=== PATIENT | female | born 1965 | race African-American/Black ===

== ENCOUNTER 2022-01-03 11:00 | Inpatient (IN) | payer BC, OTHER ==
[2022-01-03] MEDS ORDERED: cloNIDine HCL 0.1 MG TABLET PO PRN (19:01)
[2022-01-03] MEDS ORDERED: IBUPROFEN 600 MG TABLET (FP) PO PRN (19:01)
[2022-01-03] MEDS ORDERED: BENZOCAINE/MENTHOL (CHLORASEPTIC ) LOZENGE MM PRN (19:01)
[2022-01-03] MEDS ORDERED: ACETAMINOPHEN 325 MG TABLET (FP) PO PRN ×2 (19:01)
[2022-01-03] MEDS ORDERED: LOPERAMIDE HCL 2 MG CAPSULE PO PRN (19:01)
[2022-01-03] MEDS ORDERED: ONDANSETRON *ODT* 4 MG TABLET SL PRN (19:01)
[2022-01-03] MEDS ORDERED: BISMUTH SUBSALICYLATE 524 MG/30 ML PO PRN (19:01)
[2022-01-03] MEDS ORDERED: DICYCLOMINE HCL 10 MG CAPSULE PO PRN (19:01)
[2022-01-03] MEDS ORDERED: IBUPROFEN 400 MG TABLET (FP) PO PRN (19:01)
[2022-01-03] MEDS ORDERED: methaDONE HCL 10 MG TABLET (FOR DETOX USE ONLY) PO ONE (19:01)
[2022-01-03] MEDS ORDERED: MAG HYDROX/AL HYDROX/SIMETH 30 ML UNIT-DOSE CUP PO PRN (19:01)
[2022-01-03] MEDS ORDERED: MAGNESIUM CITRATE 300 ML BOTTLE PO PRN (19:01)
[2022-01-03] MEDS ORDERED: MAGNESIUM HYDROX 2400MG/30ML ORAL SUSPENSION 30 ML CUP PO PRN (19:01)
[2022-01-03] MEDS ORDERED: BACLOFEN 10 MG TABLET (FP) PO PRN (20:41)
[2022-01-03] MEDS: hydrOXYzine PAMOATE 25 MG CAPSULE (FP) PO SCH (21:48)
[2022-01-03] MEDS: THIAMINE HCL 100 MG TABLET (FP) PO SCH (21:48)
[2022-01-03] MEDS: PRENATAL VITAMINS W/ FOLIC ACID TABLET (FP) PO SCH (21:53)
[2022-01-03] MEDS ORDERED: MELATONIN 5 MG TABLETS PO SCH (22:00)
[2022-01-03 23:28] VITALS: BMI 18.8
[2022-01-04] MEDS: hydrOXYzine PAMOATE 25 MG CAPSULE (FP) PO SCH ×5 (06:00→22:24)
[2022-01-04] MEDS ORDERED: PATIENT'S OWN MEDICATION (NON-FORMULARY) (Losartan Potassium [Losartan Potassium] 100 MG T PO SCH (10:00)
[2022-01-04] MEDS ORDERED: amLODIPine BESYLATE 10 MG TABLET (FP) PO SCH (10:00)
[2022-01-04] MEDS: PRENATAL VITAMINS W/ FOLIC ACID TABLET (FP) PO SCH (10:13)
[2022-01-04] MEDS: LOSARTAN POTASSIUM 50 MG TABLET PO SCH (10:14)
[2022-01-04] MEDS: amLODIPine BESYLATE 10 MG TABLET (FP) PO SCH (10:14)
[2022-01-04] MEDS: LORATADINE 10 MG TABLET PO SCH (10:14)
[2022-01-04] MEDS: METHOCARBAMOL 500 MG TABLET PO PRN ×2 (10:15→18:39)
[2022-01-04 10:27] LABS: HEMATOCRIT 33.6 % (32.4-45.2); HEMOGLOBIN 11.5 GM/dL (10.7-15.3); MCH 30.8 pg (25.7-33.7); MCHC 34.1 g/dl (32.0-36.0); MEAN CELL VOLUME 90.3 fl (80-96); MEAN PLT VOLUME 9.1 fl (7.5-11.1); PLATELET COUNT 248 10^3/uL (134-434); RBC 3.72 M/mm3 (3.60-5.2); RDW 13.7 % (11.6-15.6); WHITE BLOOD COUNT 4.7 K/mm3 (4.0-10.0)
[2022-01-04 10:54] LABS: CALCIUM 8.8 mg/dL (8.5-10.1)
[2022-01-04 10:56] LABS: ALBUMIN 3.4 g/dl (3.4-5.0); BLOOD UREA NITROGEN 22.3 mg/dL (7-18)
[2022-01-04 10:58] LABS: CREATININE 1.2 mg/dL (0.55-1.3)
[2022-01-04 10:59] LABS: BILIRUBIN,TOTAL 0.3 mg/dL (0.2-1)
[2022-01-04 11:00] LABS: TOT PROT 6.1 g/dl (6.4-8.2)
[2022-01-04] MEDS: HYDROCORTISONE 2.5% LOTION - 1 BOTTLE TP SCH ×2 (11:12→22:25)
[2022-01-04] MEDS: CLOTRIMAZOLE 1% CREAM TP SCH (11:13)
[2022-01-04] MEDS: TOPIRAMATE 25 MG TABLET PO SCH (11:27)
[2022-01-04] MEDS ORDERED: QUEtiapine FUMARATE 100 MG TABLET (FP) PO SCH (22:00)
[2022-01-04] MEDS: QUEtiapine FUMARATE 200 MG TABLET PO SCH (22:24)
[2022-01-04] MEDS: THIAMINE HCL 100 MG TABLET (FP) PO SCH (22:24)
[2022-01-05] MEDS: hydrOXYzine PAMOATE 25 MG CAPSULE (FP) PO SCH ×5 (05:48→22:12)
[2022-01-05] MEDS ORDERED: methaDONE HCL 10 MG TABLET (FOR DETOX USE ONLY) PO ONE (10:00)
[2022-01-05] MEDS: LOSARTAN POTASSIUM 50 MG TABLET PO SCH (10:23)
[2022-01-05] MEDS: amLODIPine BESYLATE 10 MG TABLET (FP) PO SCH (10:24)
[2022-01-05] MEDS: LORATADINE 10 MG TABLET PO SCH (10:24)
[2022-01-05] MEDS: PRENATAL VITAMINS W/ FOLIC ACID TABLET (FP) PO SCH (10:25)
[2022-01-05] MEDS: HYDROCORTISONE 2.5% LOTION - 1 BOTTLE TP SCH (10:28)
[2022-01-05] MEDS: TOPIRAMATE 25 MG TABLET PO SCH ×2 (10:29→10:40)
[2022-01-05] MEDS: CLOTRIMAZOLE 1% CREAM TP SCH (10:31)
[2022-01-05] MEDS ORDERED: COLLOIDAL OATMEAL 1 BAR EACH TP PRN (11:06)
[2022-01-05] MEDS ORDERED: AMMONIUM LACTATE 12% LOTION 225 GM BOTTLE TP PRN (11:07)
[2022-01-05] MEDS: QUEtiapine FUMARATE 200 MG TABLET PO SCH (22:11)
[2022-01-05] MEDS: THIAMINE HCL 100 MG TABLET (FP) PO SCH (22:11)
[2022-01-05] MEDS: METHOCARBAMOL 500 MG TABLET PO PRN (22:13)
[2022-01-06] MEDS: HYDROCORTISONE 2.5% LOTION - 1 BOTTLE TP SCH ×3 (00:45→22:15)
[2022-01-06] MEDS: hydrOXYzine PAMOATE 25 MG CAPSULE (FP) PO SCH ×5 (06:08→22:15)
[2022-01-06] MEDS: LORATADINE 10 MG TABLET PO SCH (10:55)
[2022-01-06] MEDS: PRENATAL VITAMINS W/ FOLIC ACID TABLET (FP) PO SCH (10:55)
[2022-01-06] MEDS: amLODIPine BESYLATE 10 MG TABLET (FP) PO SCH (10:57)
[2022-01-06] MEDS: CLOTRIMAZOLE 1% CREAM TP SCH (10:57)
[2022-01-06] MEDS: TOPIRAMATE 25 MG TABLET PO SCH (10:57)
[2022-01-06] MEDS: LOSARTAN POTASSIUM 50 MG TABLET PO SCH (10:58)
[2022-01-06] MEDS: QUEtiapine FUMARATE 200 MG TABLET PO SCH (22:15)
[2022-01-06] MEDS: THIAMINE HCL 100 MG TABLET (FP) PO SCH (22:15)
[2022-01-07] MEDS: hydrOXYzine PAMOATE 25 MG CAPSULE (FP) PO SCH ×5 (06:11→22:29)
[2022-01-07] MEDS: NICOTINE 10 MG CARTRIDGE (INHALER) IH PRN ×2 (08:34→22:31)
[2022-01-07] MEDS ORDERED: methaDONE HCL 10 MG TABLET (FOR DETOX USE ONLY) PO ONE (10:00)
[2022-01-07] MEDS: PRENATAL VITAMINS W/ FOLIC ACID TABLET (FP) PO SCH (10:18)
[2022-01-07] MEDS: LORATADINE 10 MG TABLET PO SCH (10:19)
[2022-01-07] MEDS: amLODIPine BESYLATE 10 MG TABLET (FP) PO SCH (10:19)
[2022-01-07] MEDS: TOPIRAMATE 25 MG TABLET PO SCH (10:19)
[2022-01-07] MEDS: LOSARTAN POTASSIUM 50 MG TABLET PO SCH (10:20)
[2022-01-07] MEDS: HYDROCORTISONE 2.5% LOTION - 1 BOTTLE TP SCH (10:20)
[2022-01-07] MEDS: CLOTRIMAZOLE 1% CREAM TP SCH (10:20)
[2022-01-07] MEDS: guaiFENesin 600 MG TABLET.ER (FP) PO SCH ×2 (15:52→22:29)
[2022-01-07] MEDS: THIAMINE HCL 100 MG TABLET (FP) PO SCH (22:29)
[2022-01-07] MEDS: QUEtiapine FUMARATE 200 MG TABLET PO SCH (22:29)
[2022-01-07] MEDS: METHOCARBAMOL 500 MG TABLET PO PRN (22:31)
[2022-01-08] MEDS: HYDROCORTISONE 2.5% LOTION - 1 BOTTLE TP SCH ×2 (00:06→09:32)
[2022-01-08] MEDS: hydrOXYzine PAMOATE 25 MG CAPSULE (FP) PO SCH ×2 (07:12→09:34)
[2022-01-08] MEDS: TOPIRAMATE 25 MG TABLET PO SCH (09:31)
[2022-01-08] MEDS: amLODIPine BESYLATE 10 MG TABLET (FP) PO SCH (09:31)
[2022-01-08] MEDS: LOSARTAN POTASSIUM 50 MG TABLET PO SCH (09:31)
[2022-01-08] MEDS: LORATADINE 10 MG TABLET PO SCH (09:31)
[2022-01-08] MEDS: CLOTRIMAZOLE 1% CREAM TP SCH (09:32)
[2022-01-08] MEDS: guaiFENesin 600 MG TABLET.ER (FP) PO SCH (09:32)
[2022-01-08] MEDS: PRENATAL VITAMINS W/ FOLIC ACID TABLET (FP) PO SCH (09:34)
[2022-01-08 12:56] VITALS: BP 132/64; PULSE 73; RESP 17; TEMP 97.1
== END 2022-01-08 13:17 | disposition home or self-care (01) | DRG 897 ==
LOC: YASAS 11:00 → Y6N 14:55
PROVIDERS: ADMIT Allergy & Immunology; ATTEND Surgery
PROC: HZ2ZZZZ Detoxification Services for Substance Abuse Treatment (ICD-10-PCS; principal; 2022-01-03)
DX: F11.23 Opioid dependence with withdrawal (principal); F14.20 Cocaine dependence, uncomplicated; F19.280 Other psychoactive substance dependence with psychoactive substance-induced anxiety disorder; F19.282 Other psychoactive substance dependence with psychoactive substance-induced sleep disorder; F31.81 Bipolar II disorder; F10.20 Alcohol dependence, uncomplicated; F17.210 Nicotine dependence, cigarettes, uncomplicated; F43.10 Post-traumatic stress disorder, unspecified; E78.5 Hyperlipidemia, unspecified; I10 Essential (primary) hypertension; R09.82 Postnasal drip; R79.89 Other specified abnormal findings of blood chemistry; Z91.410 Personal history of adult physical and sexual abuse
CPT/HCPCS: 36415; 80053; 82962; 84520; 85027; 86780; 93005; 93010; C9803-CS; U0003; U0005

== ENCOUNTER 2022-03-06 13:45 | Inpatient (IN) | payer BC, OTHER ==
[2022-03-06 14:21] VITALS: BMI 17.2
[2022-03-06] MEDS ORDERED: BENZOCAINE/MENTHOL (CHLORASEPTIC ) LOZENGE MM PRN (15:17)
[2022-03-06] MEDS ORDERED: ONDANSETRON *ODT* 4 MG TABLET SL PRN (15:17)
[2022-03-06] MEDS ORDERED: IBUPROFEN 600 MG TABLET (FP) PO PRN (15:17)
[2022-03-06] MEDS ORDERED: MAGNESIUM CITRATE 300 ML BOTTLE PO PRN (15:17)
[2022-03-06] MEDS ORDERED: NALOXONE HCL (KLOXXADO) 8 MG SPRAY NS PRN (15:17)
[2022-03-06] MEDS ORDERED: IBUPROFEN 400 MG TABLET (FP) PO PRN (15:17)
[2022-03-06] MEDS ORDERED: BISMUTH SUBSALICYLATE 524 MG/30 ML PO PRN (15:17)
[2022-03-06] MEDS ORDERED: MAGNESIUM HYDROX 2400MG/30ML ORAL SUSPENSION 30 ML CUP PO PRN (15:17)
[2022-03-06] MEDS ORDERED: LOPERAMIDE HCL 2 MG CAPSULE PO PRN (15:17)
[2022-03-06] MEDS ORDERED: DICYCLOMINE HCL 10 MG CAPSULE PO PRN (15:17)
[2022-03-06] MEDS ORDERED: ACETAMINOPHEN 325 MG TABLET (FP) PO PRN (15:17)
[2022-03-06] MEDS ORDERED: MAG HYDROX/AL HYDROX/SIMETH 30 ML UNIT-DOSE CUP PO PRN (15:17)
[2022-03-06] MEDS ORDERED: cloNIDine HCL 0.1 MG TABLET PO PRN (15:26)
[2022-03-06] MEDS ORDERED: methaDONE HCL 10 MG TABLET (FOR DETOX USE ONLY) PO ONE (15:26)
[2022-03-06] MEDS ORDERED: methaDONE HCL 10 MG TABLET (FOR DETOX USE ONLY) ONE (16:35)
[2022-03-06] MEDS: MELATONIN 5 MG TABLETS PO SCH (22:15)
[2022-03-06] MEDS: THIAMINE HCL 100 MG TABLET (FP) PO SCH (22:15)
[2022-03-06] MEDS: METHOCARBAMOL 500 MG TABLET PO PRN (22:17)
[2022-03-06] MEDS: diazePAM 5 MG TABLET PO PRN (22:17)
[2022-03-06] MEDS: NICOTINE 10 MG CARTRIDGE (INHALER) IH PRN (22:19)
[2022-03-07] MEDS: PRENATAL VITAMINS W/ FOLIC ACID TABLET (FP) PO SCH (10:19)
[2022-03-07] MEDS: METHOCARBAMOL 500 MG TABLET PO PRN ×2 (10:19→22:25)
[2022-03-07] MEDS: diazePAM 5 MG TABLET PO PRN ×2 (10:20→22:26)
[2022-03-07 14:11] LABS: HEMATOCRIT 40.1 % (32.4-45.2); HEMOGLOBIN 12.7 GM/dL (10.7-15.3); MCH 29.3 pg (25.7-33.7); MCHC 31.7 g/dl (32.0-36.0); MEAN CELL VOLUME 92.4 fl (80-96); MEAN PLT VOLUME 9.2 fl (7.5-11.1); PLATELET COUNT 332 10^3/uL (134-434); RBC 4.34 M/mm3 (3.60-5.2); RDW 14.1 % (11.6-15.6)
[2022-03-07 14:27] LABS: CALCIUM 9.5 mg/dL (8.5-10.1)
[2022-03-07 14:28] LABS: ALBUMIN 3.6 g/dl (3.4-5.0); BLOOD UREA NITROGEN 22.1 mg/dL (7-18)
[2022-03-07 14:31] LABS: CREATININE 1.4 mg/dL (0.55-1.3)
[2022-03-07 14:32] LABS: BILIRUBIN,TOTAL 0.3 mg/dL (0.2-1); TOT PROT 6.7 g/dl (6.4-8.2)
[2022-03-07] MEDS ORDERED: guaiFENesin 600 MG TABLET.ER (FP) PO ONE (17:44)
[2022-03-07] MEDS: MELATONIN 5 MG TABLETS PO SCH (22:23)
[2022-03-07] MEDS: THIAMINE HCL 100 MG TABLET (FP) PO SCH (22:23)
[2022-03-07] MEDS: QUEtiapine FUMARATE 100 MG TABLET (FP) PO SCH (22:25)
[2022-03-07] MEDS: guaiFENesin 600 MG TABLET.ER (FP) PO SCH (23:43)
[2022-03-08] MEDS ORDERED: methaDONE HCL 10 MG TABLET (FOR DETOX USE ONLY) PO ONE ×2 (10:00→15:53)
[2022-03-08] MEDS: PRENATAL VITAMINS W/ FOLIC ACID TABLET (FP) PO SCH (10:56)
[2022-03-08] MEDS: guaiFENesin 600 MG TABLET.ER (FP) PO SCH ×2 (10:57→22:21)
[2022-03-08] MEDS: ACETAMINOPHEN 325 MG TABLET (FP) PO PRN (10:57)
[2022-03-08] MEDS: LORATADINE 10 MG TABLET PO SCH (11:24)
[2022-03-08] MEDS: NICOTINE 10 MG CARTRIDGE (INHALER) IH PRN (16:36)
[2022-03-08] MEDS: MELATONIN 5 MG TABLETS PO SCH (22:21)
[2022-03-08] MEDS: QUEtiapine FUMARATE 100 MG TABLET (FP) PO SCH (22:21)
[2022-03-08] MEDS: THIAMINE HCL 100 MG TABLET (FP) PO SCH (22:21)
[2022-03-08] MEDS: diazePAM 5 MG TABLET PO PRN (22:25)
[2022-03-09] MEDS: hydrOXYzine PAMOATE 25 MG CAPSULE (FP) PO PRN (10:17)
[2022-03-09] MEDS: diazePAM 5 MG TABLET PO PRN (10:17)
[2022-03-09] MEDS: LORATADINE 10 MG TABLET PO SCH (10:17)
[2022-03-09] MEDS: PRENATAL VITAMINS W/ FOLIC ACID TABLET (FP) PO SCH (10:18)
[2022-03-09] MEDS: guaiFENesin 600 MG TABLET.ER (FP) PO SCH ×2 (10:18→22:13)
[2022-03-09] MEDS: ACETAMINOPHEN 325 MG TABLET (FP) PO PRN (17:52)
[2022-03-09] MEDS: MELATONIN 5 MG TABLETS PO SCH (22:12)
[2022-03-09] MEDS: THIAMINE HCL 100 MG TABLET (FP) PO SCH (22:13)
[2022-03-09] MEDS: METHOCARBAMOL 500 MG TABLET PO PRN (22:15)
[2022-03-10] MEDS: NICOTINE 10 MG CARTRIDGE (INHALER) IH PRN ×2 (03:49→19:21)
[2022-03-10] MEDS ORDERED: methaDONE HCL 10 MG TABLET (FOR DETOX USE ONLY) PO ONE (10:00)
[2022-03-10] MEDS: LORATADINE 10 MG TABLET PO SCH (10:22)
[2022-03-10] MEDS: PRENATAL VITAMINS W/ FOLIC ACID TABLET (FP) PO SCH (10:51)
[2022-03-10] MEDS: guaiFENesin 600 MG TABLET.ER (FP) PO SCH ×2 (10:51→22:09)
[2022-03-10] MEDS: MELATONIN 5 MG TABLETS PO SCH (22:09)
[2022-03-10] MEDS: METHOCARBAMOL 500 MG TABLET PO PRN (22:09)
[2022-03-10] MEDS: THIAMINE HCL 100 MG TABLET (FP) PO SCH (22:09)
[2022-03-10] MEDS: hydrOXYzine PAMOATE 25 MG CAPSULE (FP) PO PRN (22:10)
[2022-03-11] MEDS: guaiFENesin 600 MG TABLET.ER (FP) PO SCH ×2 (10:31→23:18)
[2022-03-11] MEDS: METHOCARBAMOL 500 MG TABLET PO PRN ×2 (10:31→22:12)
[2022-03-11] MEDS: hydrOXYzine PAMOATE 25 MG CAPSULE (FP) PO PRN (10:31)
[2022-03-11] MEDS: PRENATAL VITAMINS W/ FOLIC ACID TABLET (FP) PO SCH (10:31)
[2022-03-11] MEDS: LORATADINE 10 MG TABLET PO SCH (10:31)
[2022-03-11] MEDS ORDERED: QUEtiapine FUMARATE 100 MG TABLET (FP) PO SCH (22:00)
[2022-03-11] MEDS: MELATONIN 5 MG TABLETS PO SCH (22:08)
[2022-03-11] MEDS: THIAMINE HCL 100 MG TABLET (FP) PO SCH (22:09)
[2022-03-12] MEDS: PRENATAL VITAMINS W/ FOLIC ACID TABLET (FP) PO SCH (09:01)
[2022-03-12] MEDS: guaiFENesin 600 MG TABLET.ER (FP) PO SCH (09:01)
[2022-03-12] MEDS: LORATADINE 10 MG TABLET PO SCH (09:01)
[2022-03-12 09:51] VITALS: BP 115/65; PULSE 81; RESP 16; TEMP 98.1
== END 2022-03-12 10:48 | disposition other institution (70) | DRG 897 ==
LOC: YASAS 13:45 → Y3N 16:44 → Y6N 03-10 14:43
PROVIDERS: ADMIT Allergy & Immunology; ATTEND Surgery
PROC: HZ2ZZZZ Detoxification Services for Substance Abuse Treatment (ICD-10-PCS; principal; 2022-03-06)
DX: F11.23 Opioid dependence with withdrawal (principal); F14.20 Cocaine dependence, uncomplicated; F10.20 Alcohol dependence, uncomplicated; F17.210 Nicotine dependence, cigarettes, uncomplicated; F31.9 Bipolar disorder, unspecified; F41.9 Anxiety disorder, unspecified; F19.24 Other psychoactive substance dependence with psychoactive substance-induced mood disorder; F43.10 Post-traumatic stress disorder, unspecified; E78.5 Hyperlipidemia, unspecified; G47.00 Insomnia, unspecified; I95.9 Hypotension, unspecified; I10 Essential (primary) hypertension; R09.82 Postnasal drip; R05.8 Other specified cough
CPT/HCPCS: 36415; 80053; 81025; 85027; 86780; 87811; C9803-CS; U0003; U0005

== ENCOUNTER 2022-03-08 12:14 | Emergency (ER) | payer BC, OTHER ==
[2022-03-08 12:34] VITALS: BP 142/74; PULSE 76; RESP 18; TEMP 98.2; BMI 17.2
[2022-03-08] MEDS ORDERED: SODIUM CHLORIDE 0.9% 500 ML INFUS.BAG IV ONE (13:08)
[2022-03-08 14:27] LABS: BASO % 1.3 % (0-2.0); EOS % 3.8 % (0-4.5); HEMATOCRIT 34.1 % (32.4-45.2); HEMOGLOBIN 11.2 GM/dL (10.7-15.3); MCHC 32.8 g/dl (32.0-36.0); MEAN CELL VOLUME 91.6 fl (80-96); MEAN PLT VOLUME 8.6 fl (7.5-11.1); MONO % 6.8 % (3.8-10.2); NEUT % 24.1 % (42.8-82.8); PLATELET COUNT 279 10^3/uL (134-434); RBC 3.72 M/mm3 (3.60-5.2); RDW 13.8 % (11.6-15.6)
[2022-03-08 14:46] LABS: BLOOD UREA NITROGEN 28.7 mg/dL (7-18)
[2022-03-08 14:49] LABS: CALCIUM 9.2 mg/dL (8.5-10.1)
[2022-03-08 14:50] LABS: ALBUMIN 3.2 g/dl (3.4-5.0)
[2022-03-08 14:52] LABS: BILIRUBIN,TOTAL 0.2 mg/dL (0.2-1); TOT PROT 6.1 g/dl (6.4-8.2)
[2022-03-08 14:53] LABS: CREATININE 1.1 mg/dL (0.55-1.3)
[2022-03-08 15:31] LABS: ANISOCYTOSIS 0; HELMET CELLS 0; HOWELL-JOLLY BODIES 0; MACROCYTOSIS 0; OVALOCYTE 0; ROULEAU 0; SICKELED CELLS 0; TARGET CELLS 0; TEAR DROP CELLS 0; TOXIC GRANULATION 0
== END 2022-03-08 15:00 | disposition home or self-care (01) ==
LOC: JER 12:14
DX: I95.9 Hypotension, unspecified (principal)
CPT/HCPCS: 36415; 80053; 85025; 93005; 93010; 99284-25